=== PATIENT | male | born 1965 ===

== ENCOUNTER 2020-08-19 10:22 | Outpatient (CLI) | payer OTHER | END 2020-08-19 18:50 | disposition home or self-care (01) | LOC: LAB 10:22 | PROVIDERS: ATTEND Urology | DX: R97.20 Elevated prostate specific antigen [PSA] (principal) ==

== ENCOUNTER 2020-09-24 07:34 | Outpatient (CLI) | payer OTHER | END 2020-09-24 08:05 | disposition home or self-care (01) | LOC: RAD 07:34 | PROVIDERS: ATTEND Urology | DX: D29.1 Benign neoplasm of prostate (principal); R97.20 Elevated prostate specific antigen [PSA] ==

== ENCOUNTER 2021-11-24 14:36 | Outpatient (CLI) | payer OTHER | END 2021-11-24 14:37 | disposition home or self-care (01) | LOC: LAB 14:36 | PROVIDERS: ATTEND Urology | DX: R97.20 Elevated prostate specific antigen [PSA] (principal) ==

== ENCOUNTER 2021-12-09 07:12 | Outpatient (CLI) | payer OTHER | END 2021-12-09 07:34 | disposition home or self-care (01) | LOC: SONOGRAMA 07:12 | PROVIDERS: ATTEND Urology | DX: R97.20 Elevated prostate specific antigen [PSA] (principal) ==